=== PATIENT | female | born 1995 | race Caucasian/White ===

== ENCOUNTER → 2017-07-27 13:46 | Outpatient (CLI) | payer SELFPAY ==
[2017-07-27 17:55] LABS: Chlamydia Trachomatis by PCR Negative (Negative); Neisserai gonorrhoeae by PCR Negative (Negative); Probe Check PASS; Sample Adequacy Control PASS; Specimen Processing Control PASS
== END ==
PROVIDERS: Visit Provider Obstetrics & Gynecology
DX: Z12.4 Encounter for screening for malignant neoplasm of cervix (principal); Z11.3 Encounter for screening for infections with a predominantly sexual mode of transmission
CPT/HCPCS: 87491; 87591; 88175; G0145

== ENCOUNTER → 2017-08-24 14:19 | Outpatient (CLI) | payer SELFPAY ==
[2017-08-24 15:51] LABS: Absolute Lymphocyte Count 1.12 X10^3/ul (0.83-4.51); Absolute Neutrophil Count 5.9 X10^3/uL (2.0-7.7); Basophil# 0.01 X10^3/uL; Basophil% 0.1 % (0-1); Eosinophil# 0.03 X10^3/uL; Eosinophils% 0.4 % (0-5); Hematocrit 36.5 % (37-47); Hemoglobin 13.2 g/dl (12.0-15.0); Lymphocyte # 1.12 X10^3/ul (4.0); Lymphocyte % 14.6 % (19-41); Mean Corp Hgb Conc 36.2 g/gl (32-36); Mean Corpuscular Hgb 30.8 pg (27.0-32.0); Mean Corpuscular Volume 85.1 fL (81-99); Monocyte# 0.66 X10^3/uL; Monocyte% 8.6 % (0-10); Neutrophil # 5.86 X10^3/uL (2.7-7.7); Neutrophil % 76.2 % (47-70); Platelet Count 251 K/mm3 (150-450); RBC Distribution Width CV 13.1 % (11.6-14.6); RBC Distribution Width SD 39.9 fl (35.1-43.9); Red Blood Count 4.29 M/mm3 (4.2-5.4); White Blood Count 7.7 K/mm3 (4.4-11.0)
[2017-08-24 16:07] LABS: Thyroid Stim Hormone (TSH) 1.39 uIU/mL (0.358-3.74)
[2017-08-24 16:28] LABS: Color, Urine Yellow (Yellow); Glucose, Dipstick Normal (Normal); Ketone-Dipstick Negative (Negative); Leukocyte Esterase-Dipstick Negative /ul (Negative); Nitrite-Dipstick Negative (Negative); Occult Blood-Urine Negative /ul (Negative); Protein-Dipstick Negative (Negative); Specific Gravity, Urine 1.025 (1.002-1.030); Urine Bilirubin Dipstick Negative (Negative); Urine Clarity Clear (Clear); Urine Urobilinogen Normal (Normal)
[2017-08-24 16:32] LABS: POSITIVE COUNT NO; POSITIVE DIFFERENTIAL NO; POSITIVE MORPHOLOGY NO
[2017-08-24 17:00] LABS: HIV - WCH Non-Reactive (Nonreactive); Rubella IgG 0.3 IU/mL
[2017-08-26 11:28] LABS: HEPATITIS B SURFACE AG Negative (Negative); Hep C Antibodies <0.1 s/co ratio (0.0-0.9)
[2017-08-28 05:01] LABS: Prenatal RPR NONREACTIVE (NONREACTIVE)
== END ==
PROVIDERS: Visit Provider Obstetrics & Gynecology
DX: Z34.81 Encounter for supervision of other normal pregnancy, first trimester (principal)
CPT/HCPCS: 36415; 81002; 84443; 85025; 86703; 86762; 86803; 87340

== ENCOUNTER → 2017-12-09 16:14 | Outpatient (CLI) | payer SELFPAY ==
[2017-12-09 17:20] LABS: Hematocrit 30.7 % (37-47); Hemoglobin 10.7 g/dl (12.0-15.0); Mean Corp Hgb Conc 34.9 g/gl (32-36); Mean Corpuscular Hgb 31.8 pg (27.0-32.0); Mean Corpuscular Volume 91.4 fL (81-99); Mean Platelet Vol. 8.8 fl (6.2-12.0); Platelet Count 239 K/mm3 (150-450); RBC Distribution Width CV 12.9 % (11.6-14.6); RBC Distribution Width SD 41.6 fl (35.1-43.9); Red Blood Count 3.36 M/mm3 (4.2-5.4); White Blood Count 6.3 K/mm3 (4.4-11.0)
[2017-12-09 17:24] LABS: Glucose Challenge Gest 1H 50g 92 mg/dL (70-140)
[2017-12-09 17:25] LABS: Scan Indicated on CBC? Y/N NO
== END ==
PROVIDERS: Visit Provider Obstetrics & Gynecology
DX: Z34.83 Encounter for supervision of other normal pregnancy, third trimester (principal)
CPT/HCPCS: 36415; 82950; 85027

== ENCOUNTER → 2018-02-04 12:26 | Outpatient (CLI) | payer SELFPAY ==
[2018-02-04 14:05] LABS: Group B Strep DNA By PCR Negative (Negative); Internal Control PASS; Probe Check PASS; Specimen Processing Control PASS
== END ==
PROVIDERS: Referring Provider Obstetrics & Gynecology; Visit Provider Obstetrics & Gynecology
DX: Z36.85 Encounter for antenatal screening for Streptococcus B (principal)
CPT/HCPCS: 87081; 87653

== ENCOUNTER 2018-02-11 15:35 | Inpatient (IN) | payer SELFPAY ==
[2018-02-11 13:00] VITALS: BMI 24.1
[2018-02-11 13:02] LABS: Hematocrit 32.1 % (37-47); Hemoglobin 11.1 g/dl (12.0-15.0); Mean Corp Hgb Conc 34.6 g/gl (32-36); Mean Corpuscular Hgb 30.6 pg (27.0-32.0); Mean Corpuscular Volume 88.4 fL (81-99); Mean Platelet Vol. 9.6 fl (6.2-12.0); Platelet Count 227 K/mm3 (150-450); RBC Distribution Width CV 12.2 % (11.6-14.6); RBC Distribution Width SD 37.7 fl (35.1-43.9); Red Blood Count 3.63 M/mm3 (4.2-5.4); White Blood Count 6.7 K/mm3 (4.4-11.0)
[2018-02-11 13:03] LABS: Scan Indicated on CBC? Y/N NO
[2018-02-11 13:16] LABS: Protein, Urine (Random) 15.6 mg/dL (<11.9); Protein:Creat Ratio 215 mg/g CRE (0-200)
[2018-02-11 13:18] LABS: International Normalized Ratio 0.9; Prothrombin Time (Protime)PT. 11.9 SECONDS (11.7-14.9)
[2018-02-11 13:19] LABS: Partial Thromboplast Time 26.1 Seconds (24.1-36.2)
[2018-02-11 13:29] LABS: AST(SGOT) 21 U/L (15-37); Alanine Aminotransfer ALT/SGPT 14 U/L (13-56); Creatinine, Serum 0.64 mg/dL (0.55-1.02); EST Glomerular Filtration Rate 121 mL/min (>60); Est Glom Filt Rate - Afr Amer 146 mL/min (>60); Estimated Creatinine Clearance 121.97 ml/min; Uric Acid 4.5 mg/dL (2.6-6.0)
[2018-02-11] MEDS: miSOPROStol 25 MCG TABLET PO (18:29)
[2018-02-11] MEDS: 0.9% Normal Saline 100 ML IV.SOLN. INTRA-UTER (18:30)
[2018-02-11] MEDS: Labetalol 100 MG/20 ML Vial 20 MG IV ×2 (20:13→21:54)
[2018-02-11] MEDS: 0.9% Saline Lock 10 ML Syringe IV (20:17)
--- NOTE | 2018-02-11 20:26 | PCM.PN.BLA ---
Progress Note LABOR PROGRESS NOTE Alexia is without complaints. Denies headache, vision changes, abdominal pain. She has menstrual like cramping periodically. Fetus is active. BP 160s-170s/90s FHR 145, moderate variability, + accelerations, no decelerations TOCO 4/10 min A/P: 22yo G1 @ 37 1/7wga with preeclampsia, Cat I FHR -Webber bulb in situ -Reviewed with patient and concerning for elevated BPs. Discused importance of blood pressure control and risks of severe range blood pressures. Labetalol IV ordered, will plan to start magnesium if BP remains elevated. -Patient and given opportunity to ask questions and questions answered to their satisfaction.
[2018-02-11] MEDS: Labetalol 100 MG Tablet PO (21:10)
[2018-02-11] MEDS: Lactated Ringers 1,000 ML 50 ML IV (22:04)
--- NOTE | 2018-02-11 22:37 | PCM.PN.BLA ---
Progress Note LABOR PROGRESS NOTE Alexia relates she is hot and flushed. Denies headache, vision changes. She continues with mild contractions. BP 140/78 T 98 P GEN - NAD, AAO x 3 NEURO - trace b/l LE DTRs, no clonus FHR 135, moderate variability, + accelerations, no decelerations TOCO 3/10 min SVE 4/50/-3, moderate and midposition A/PL 22yo G1 @ 37 1/7wga with severe gHTN vs. preeclampsia with severe features, Cat I FHR -IV magnesium started for seizure ppx - reviewed with patient and indications, potential side effects -BPs improved following second dose of IV Labetalol 20mg and PO Labetalol 100mg - will continue PO Labetalol course -Amniotomy performed with clear fluid -Will start pitocin -4h after last cytotec at end of hour.
[2018-02-11] MEDS: Magnesium Sulfate 20 GM/500 ML BAG IV (22:38)
[2018-02-11] MEDS: Oxytocin 30 units/NS 500 ml 30 UNITS/500 ML IV.SOLN IV (23:59)
[2018-02-12] VITALS (16 sets, daily range): BP systolic 118–156; BP diastolic 67–87; PULSE 82–94; RESP 16–18; TEMP 35.6–37.2; O2SAT 97–99
[2018-02-12] MEDS: Acetaminophen 325 MG Tablet PO (02:58)
[2018-02-12] MEDS: Dextrose 5%-Lactated Ringers 1,000 ML 125 ML IV (03:45)
[2018-02-12] MEDS: fentaNYL-bupivacaine (epidural) 100 ML BAG EPIDURAL (03:56)
[2018-02-12] MEDS: Oxytocin 30 units/NS 500 ml 30 UNITS/500 ML IV.SOLN 334 UNITS IV (05:12)
[2018-02-12] MEDS: Carboprost Tromethamine 250 MCG/ML Ampul IM (05:22)
[2018-02-12] MEDS: miSOPROStol 200 MCG Tablet 800 MCG RECTAL (05:25)
[2018-02-12] MEDS: Oxytocin 30 units/NS 500 ml 30 UNITS/500 ML IV.SOLN 167 UNITS IV (05:42)
[2018-02-12] MEDS: Magnesium Sulfate 20 GM/500 ML BAG IV ×2 (07:15→18:49)
[2018-02-12] MEDS: Labetalol 200 MG Tablet PO ×2 (07:38→21:53)
--- NOTE | 2018-02-12 08:00 | PLAC_PTH ---
PATIENT: ANA OLIVA LOC: [facility] U#:[id number] AGE/SX: 22/F ROOM: WP1 RE02/11/[address]: Dr. Sushma Randle MD : 1995 BED: 1 DIS: 02/14/2018 SPEC #: [id number] RECD: 02/12/18 11:06 STATUS: ADELINA BOWEN #: [id number] CHEIKH: 02/12/18 08:[address]: Sushma Bragg DEPT: SURGICAL PATHOLOGY RECD BY: Mendoza Gil Tissues: Placenta, NOS Procedures: Surgery Specimen Level V HEADER OPERATION: Vaginal delivery PRE-OP DIAGNOSIS: 37wga, preeclampsia, SGA TISSUE SUBMITTED: Placenta MICROSCOPIC DIAGNOSIS Trinh placenta (265 gm): Umbilical cord - trivascular with no inflammation. Placental membranes - no pathologic change. Placental disc - mild Ronnell-Eldaio change and mild intravillous congestion. AM:solange 02/16/18 MICROSCOPIC DESCRIPTION Slides are reviewed. GROSS DESCRIPTION SPECIMEN: PLACENTA / CLINICAL INFORMATION: A. Weight: 2.016 gm B. Gestational Age: 37 weeks C. Sex: Male PLACENTAL WEIGHT (POST FIXATION): 265 gm PLACENTAL DIMENSIONS: 14 x 14 x 2.5 cm PLACENTAL SHAPE: Usual ovoid PLACENTAL WEIGHT FOR GESTATIONAL AGE: Under 10-99th percentile MEMBRANES - Present A. Insertion: Marginal B. Site of rupture from edge: At edge of placental disc C. Color of membrane: Arredondo-anderson D. Abnormalities: None UMBILICAL CORD - Present A. Color: Arredondo-anderson B. Insertion: Paracentral C. Length: 57 cm D. Diameter: 1.1 cm E. Number of vessels: Three F. Abnormalities: Decreased spiraling is noted. PLACENTAL DISC - Present A. Color of surface: Arredondo-anderson B. surface abnormalities: None C. Maternal cotyledons: Intact with minimal tears D. Attached retro placental clot: No clot E. Cut surface: Dark red and spongy F. Lesions: None G. Separate clot: Absent SECTIONS SUBMITTED: 1. Membrane roll 2. Cord, maternal end 3. Cord, end 4. Placental disc, and maternal surfaces 5. Placental disc, and maternal surfaces 6. Placental disc, and maternal surfaces SJ:solange 02/15/18 TC:5 CPT: 61524
--- NOTE | 2018-02-12 08:03 | PCM.OB.VAG ---
- Problem List (1) Preeclampsia Status: Acute Qualifiers: Trimester: third trimester Qualified Code(s): O14.93 - Unspecified pre-eclampsia, third trimester (2) 37 weeks gestation of Status: Acute Vaginal Delivery Maternal Presentation: Medically Indicated Induction Method of Induction: Pitocin, Webber Bulb, Cytotec Medical Reason for Induction: Gestational Hypertension, - Amniotic Membrane Rupture Type: Artificial Rupture of Membrane time: 02/11/182217 Amniotic Fluid Description: Clear Final TERRA: 03/03/18 Final TERRA Source: US <20 weeks Gestational age: 37 Weeks and 2 Days [place] doctor who attended delivery (if requested by OB): Ana Maria Tate Date of Procedure: 02/12/18 Pre-Operative Diagnosis: 37 2/7wga, preeclampsia with severe features Post-Operative Diagnosis: 37 2/7wga, preeclampsia with severe features Anesthesiologist: Sandy Melo Type of Anesthesia: Epidural Description of Procedure: Patient was FD/+3 station on my arrival. She pushed to deliver the infant head in BURKE. A nuchal cord x 3 was reduced. A male subsequently delivered. The cord was doubly clamped and cut and he was passed to the awaiting Pediatric Hospitalist. Cord gases were obtained. The placenta delivered spontaneously and appeared intact on inspection however small. A first degree vaginal laceration was repaired with 3-0 Vicryl Rapide. There continued to be bleeding however not c/w hemorrhage. An intrauterine exam was performed and few membranes retrieved with evacuation and few small clots. The fundus was firm. A cervical laceration was identified repaired with 2-0 Vicryl with improved hemostasis. Sponge and needle counts were correct x 2. Presentation: Vertex Placental Delivery Description: Spontaneous Placenta Disposition: [facility] Cord Vessel Description: 3 Vessels Nuchal Cord Compression: With compression Cord Gases drawn per routine: ABG, VBG Cord Entanglement: None, - - Around neck x 3, loose Estimated Blood Loss: 600 ml Infant A gender: Male (1 minute): 7 (5 minute): 9 Episiotomy Description: None Laceration: Midline, Vaginal Extension/lac, 1st degree Medications given after delivery: IV Pitocin Complications: None
--- NOTE | 2018-02-12 08:07 | OP.PCM_ITS ---
- Problem List (1) Preeclampsia Status: Acute Qualifiers: Trimester: third trimester Qualified Code(s): O14.93 - Unspecified pre- eclampsia, third trimester (2) 37 weeks gestation of Status: Acute Vaginal Delivery Maternal Presentation: Medically Indicated Induction Method of Induction: Pitocin, Webber Bulb, Cytotec Medical Reason for Induction: Gestational Hypertension, - Amniotic Membrane Rupture Type: Artificial Rupture of Membrane time: 02/11/182217 Amniotic Fluid Description: Clear Final TERRA: 03/03/18 Final TERRA Source: US <20 weeks Gestational age: 37 Weeks and 2 Days doctor who attended delivery (if requested by OB): Ana Maria Tate Date of Procedure: 02/12/18 Pre-Operative Diagnosis: 37 2/7wga, preeclampsia with severe features Post-Operative Diagnosis: 37 2/7wga, preeclampsia with severe features Anesthesiologist: Sandy Melo Type of Anesthesia: Epidural Description of Procedure: Patient was FD/+3 station on my arrival. She pushed to deliver the infant head in BURKE. A nuchal cord x 3 was reduced. A male infant subsequently delivered. The cord was doubly clamped and cut and he was passed to the awaiting Pediatric Hospitalist. Cord gases were obtained. The placenta delivered spontaneously and appeared intact on inspection however small. A first degree vaginal laceration was repaired with 3-0 Vicryl Rapide. There continued to be bleeding however not c/w hemorrhage. An intrauterine exam was performed and few membranes retrieved with evacuation and few small clots. The fundus was firm. A cervical laceration was identified repaired with 2-0 Vicryl with improved hemostasis. Sponge and needle counts were correct x 2. Presentation: Vertex Placental Delivery Description: Spontaneous Placenta Disposition: [facility] Cord Vessel Description: 3 Vessels Nuchal Cord Compression: With compression Cord Gases drawn per routine: ABG, VBG Cord Entanglement: None, - - Around neck x 3, loose Estimated Blood Loss: 600 ml A gender: Male (1 minute): 7 (5 minute): 9 Episiotomy Description: None Laceration: Midline, Vaginal Extension/lac, 1st degree Medications given after delivery: IV Pitocin Complications: None
--- NOTE | 2018-02-12 08:16 | DCINST_ITS ---
Discharge Diet: No Restrictions Discharge Activity: Return to Normal Activity, May Shower, May Take a Tub Bath May resume sexual activity in: 6 weeks Lifting Restrictions: 20 lb Call your doctor if you observe: Fever of 101 or Higher, Inability to urinate, Inability to have a bowel movement, Using more than one pad per hour, Shortness of breath, Chest pain, Calf discomfort, Uncontrolled pain, - - Headaches, vision changes Instructions: What Is High Blood Pressure? Additional Instructions: If you experience any of the following, contact your healthcare provider. * Bleeding that soaks a pad every hour for 2 hours * Fever 100.4 or higher * Unrelieved incision or abdominal pain * Swelling, redness, discharge or bleeding from your incision or episiotomy site * Your incision begins to separate * Problems urinating (including inability to urinate or burning while urinating). * Visual changes * Severe headache * Flu-like symptoms * Pain or redness in one of both of your breasts * Pain, warmth, tenderness or swelling in your legs, especially the calf area * Frequent nausea and vomiting * Symptoms of depression or anxiety If you experience any of the following, call 911 or go to the nearest Emergency Room. * Chest pain * Problems breathing * Seizure activity * Partial or complete paralysis of a body part, slurred speech, weakness or drooping of the face, or a sudden inability to walk or hold your balance Allergies/Adverse Reactions: Allergies No Known Allergies Allergy (Verified 02/11/18 13:00) Medications to take at Discharge Vits96/Iron Fum/Folic [ Tablet] 1 tab PO DAILY 02/11/18 Docusate Sodium [Colace] 100 mg PO BID PRN PRN #60 capsule 02/12/18 Ibuprofen 600 mg PO TID PRN #30 tablet 02/12/18 The following prescriptions were given: Docusate Sodium [Colace] 100 mg PO BID PRN PRN #60 capsule PRN Reason: Constipation Ibuprofen 600 mg PO TID PRN #30 tablet PRN Reason: Pain Please Follow Up With: Krishna Peralta MD - Blood pressure check When: 7-10 days Please Follow Up With: Krishna Peralta MD - visit When: 6 weeks Test Results: Test results from this visit will be discussed in further detail at your follow- up appointment, if applicable.
[2018-02-13] VITALS (8 sets, daily range): BP systolic 124–150; BP diastolic 71–97; PULSE 65–100; RESP 16–18; TEMP 36.3–37.1; O2SAT 99
--- NOTE | 2018-02-13 06:14 | NURSING ---
0500 magnesium sulfate discontinued.
--- NOTE | 2018-02-13 09:56 | PCM.PN.OB ---
Patient Problems: Active and Suspected Problems Preeclampsia (Acute) 37 weeks gestation of (Acute) Subjective: Doing well. No headaches. Bleeding light. Objective: Afeb VSS BPs 120-150/78-83 - Physical Exam General: Alert, Oriented x3, Cooperative, No apparent distress Lungs: Clear to auscultation, Normal air movement Cardiovascular: Regular rate, Regular Rhythm Abdomen: Soft, Non Tender, Non-Distended, - - Fundus nontender Extremities: No edema Skin: No rashes Neurological: Neuro grossly intact Psych/Mental Status: Normal Affect Comment: Lochia light Vital Signs Temp Pulse Resp BP Pulse Ox 98.6 F 98 16 135/78 H 99 02/13/18 05:00 02/13/18 05:00 02/13/18 05:00 02/13/18 05:00 02/13/18 05:00 Oxygen Delivery Method Room Air Weight: 145 lb 4.554 oz Body Mass Index (BMI) 24.1 Intake and Output for Last 24 Hours 02/11/18 02/12/18 02/13/18 23:59 23:59 23:59 Intake Total / 3823 / 3823 325 / 325 Output Total 350 / 350 5040 / 5040 750 / 750 Balance -327 / -327 -1217 / -1217 -425 / -425 Medical Necessity - Tobacco Use Smoking Status: Never smoker Assessment/Plan All Active Problems Preeclampsia (Acute) 37 weeks gestation of (Acute) Doing well on PP day#1. BPs normalizing. Continue routine PP care. Breast feeding.
[2018-02-13] MEDS: Labetalol 200 MG Tablet PO ×2 (10:09→21:57)
[2018-02-13] MEDS: Senna/Docusate Sodium 1 Tablet PO (10:09)
[2018-02-13] MEDS: Prenatal Vits Tablet 1 TABLET PO (16:10)
[2018-02-14 04:00] VITALS: BP 148/78; PULSE 85; RESP 16; TEMP 36.6
[2018-02-14 06:00] VITALS: BP 152/87; PULSE 67; RESP 16; TEMP 36.5; O2SAT 100
--- NOTE | 2018-02-14 07:58 | PCM.PN.OB ---
Patient Problems: Active and Suspected Problems Preeclampsia (Acute) 37 weeks gestation of (Acute) Subjective: Doing well. No specific complaints. Objective: Afeb VSS - Physical Exam General: Alert, Oriented x3, Cooperative, No apparent distress Lungs: Clear to auscultation, Normal air movement Cardiovascular: Regular rate, Regular Rhythm Abdomen: Soft, Non Tender, Non-Distended, - - Fundus firm nontender Extremities: No edema Neurological: Neuro grossly intact Psych/Mental Status: Normal Affect Comment: Lochia light Vital Signs Temp Pulse Resp BP Pulse Ox 97.9 F 85 16 148/78 H 99 02/14/18 04:00 02/14/18 04:00 02/14/18 04:00 02/14/18 04:00 02/13/18 05:00 Oxygen Delivery Method Room Air Weight: 145 lb 4.554 oz Body Mass Index (BMI) 24.1 Intake and Output for Last 24 Hours 02/12/18 02/13/18 02/14/18 23:59 23:59 23:59 Intake Total 3823 / 3823 325 / 325 Output Total 5040 / 5040 750 / 750 Balance -1217 / -1217 -425 / -425 Medical Necessity - Tobacco Use Smoking Status: Never smoker Assessment/Plan All Active Problems Preeclampsia (Acute) 37 weeks gestation of (Acute) Doing well on PP day#2. Cleared for discharge today. Home going instructions and warnings given.
--- NOTE | 2018-02-14 08:00 | PCM.DC.SUM ---
Discharge Date and Diagnosis - Problem List Patient Problems: Active and Suspected Problems Preeclampsia (Acute) 37 weeks gestation of (Acute) Date of Admission: 02/12/18 Date of Discharge: 02/14/18 - Primary Discharge Diagnosis Active and Suspected Problems Preeclampsia (Acute) 37 weeks gestation of (Acute) S/P Hospital Course and Treatment Operations: None Procedures: - - Summary of Care Provided: The patient is a 22 year old F [admitted with elevated blood pressures in labor. Progressed to FD then pushed to deliver a live without complication. Post course unremarkable. BP stabilized.] Discharge Diet: No Restrictions Discharge Activity: Return to Normal Activity, May Shower, May Take a Tub Bath Return to work on:: 04/14/18 May shower in (days): 0 May resume sexual activity in: 6 weeks Call your doctor if your incision/area has: Sudden Increased Bleeding, Increased Pain/ Swelling, Foul Smelling Discharge Call your doctor if you observe: Fever of 101 or Higher, Inability to urinate, Inability to have a bowel movement, Using more than one pad per hour, Shortness of breath, Chest pain, Calf discomfort, Uncontrolled pain, - - Headaches, vision changes Cleanse incision/area with: Soap & Water Home Medications: Medications to take at Discharge Vits96/Iron Fum/Folic [ Tablet] 1 tab PO DAILY 02/11/18 Docusate Sodium [Colace] 100 mg PO BID PRN PRN #60 capsule 02/12/18 Ibuprofen 600 mg PO TID PRN #30 tablet 02/12/18 Following Prescrptions Were Given to Patient: Docusate Sodium [Colace] 100 mg PO BID PRN PRN #60 capsule PRN Reason: Constipation Ibuprofen 600 mg PO TID PRN #30 tablet PRN Reason: Pain Please Follow Up With: Krishna Peralta MD - Blood pressure check When: 6 weeks Please Follow Up With: Krishna Peralta MD - visit When: 6 weeks Patient Instructions: What Is High Blood Pressure? Disposition: Home Minutes spent on discharge:: 15 Patient Condition:: Good Medical Necessity - Tobacco Use Smoking Status: Never smoker Meaningful Use Info Meaningful Use Diagnoses (Choose all that apply): None applicable
[2018-02-14 08:02] VITALS: BP 122/69; PULSE 91; RESP 16; TEMP 36.6
[2018-02-14] MEDS: Labetalol 200 MG Tablet PO (09:18)
[2018-02-14 10:00] VITALS: BP 122/77; PULSE 67; RESP 16; TEMP 36.4
[2018-02-14] MEDS: Acetaminophen 325 MG Tablet PO (11:20)
[2018-02-14] MEDS: Prenatal Vits Tablet 1 TABLET PO ×2 (11:30→11:49)
[2018-02-16 15:55] LABS: Pathology Specimen OB SEE PATHOLOGY REPORT
== END 2018-02-14 11:18 | disposition home or self-care (01) | DRG 768 ==
LOC: WPOUT 15:37
PROVIDERS: Obstetrics & Gynecology; Admitting Provider Obstetrics & Gynecology; Referring Provider Obstetrics & Gynecology; Visit Provider Obstetrics & Gynecology
DX: O14.13 Severe pre-eclampsia, third trimester (principal); O71.3 Obstetric laceration of cervix; O69.81X0 Labor and delivery complicated by cord around neck, without compression, not applicable or unspecified; O70.0 First degree perineal laceration during delivery; Z3A.37 37 weeks gestation of pregnancy; Z37.0 Single live birth
CPT/HCPCS: 59025; 59050; 82565; 82570; 84156; 84450; 84460; 84550; 85027; 85610; 85730; 86850; 86900; 88307; 99218; J7050; J7120; A4216; G0378